=== PATIENT | male | born 1955 | race American Indian/Alaskan Native ===

== ENCOUNTER 2018-05-14 11:38 | Emergency (ER) | payer MEDICARE, MEDICAID ==
[2018-05-14 11:38] VITALS: BMI 31.3
[2018-05-14 12:02] VITALS: TEMP 98.4; O2SAT 96
--- NOTE | 2018-05-14 12:12 | ED PDOC ---
HPI: General Adult Time Seen by Provider: 05/14/18 12:06 Chief Complaint (Nursing): Abnormal Skin Integrity Chief Complaint (Provider): rash History Per: Patient History/Exam Limitations: no limitations Onset/Duration Of Symptoms: Days (x7) Current Symptoms Are (Timing): Still Present Additional Complaint(s): 62 y/o male with a PMHx of asthma, HIV, DM and HTN presents to the ED complaining of a rash to the bilateral upper extremities, onset one week ago. Patient reports rash developed after working outside in his backyard. Denies taking medications for symptom relief. PMD: Toñito Choudhary Past Medical History Reviewed: Historical Data, Nursing Documentation, Vital Signs Vital Signs: Last Vital Signs Temp 98.4 F 05/14/18 12:00 Pulse 96 H 05/14/18 12:00 Resp 20 05/14/18 12:00 BP 181/97 H 05/14/18 12:00 Pulse Ox 96 05/14/18 12:52 - Medical History PMH: Asthma, Depression, Diabetes, Hepatitis (C), HIV, HTN - Surgical History Surgical History: No Surg Hx - Family History Family History: States: Unknown Family Hx - Social History Current smoker - smoking cessation education provided: No Alcohol: None Drugs: Denies - Home Medications Home Medications: Ambulatory Orders Medication Instructions Recorded Albuterol Sulfate [Proair Hfa] 2 puff IH Q6H PRN 03/19/15 Allopurinol [Zyloprim] 300 mg PO DAILY 03/19/15 Darunavir [Prezista] 800 mg PO HS 03/19/15 Ergocalciferol (Vitamin D2) 50,000 unit PO DAILY 03/19/15 [Vitamin D2] Fenofibrate [Tricor] 48 mg PO DAILY 03/19/15 Losartan [Cozaar] 100 mg PO DAILY 03/19/15 Omeprazole [Prilosec] 20 mg PO DAILY 03/19/15 Ritonavir [Norvir] 100 mg PO HS 03/19/15 amLODIPine [Norvasc] 5 mg PO DAILY 03/19/15 QUEtiapine [SEROquel] 200 mg PO HS #0 tab 03/23/15 Raltegravir Potassium [Isentress] 400 mg PO BID #0 tab 03/23/15 Zolpidem [Ambien] 5 mg PO HS PRN #0 tab 03/23/15 Carvedilol [Coreg] 6.25 mg PO BID 10/06/16 Insulin Lispro Mix 75/25 [humalog 15 units SC ACBD 10/06/16 Mix 75/25 75 U/Ml-25 U/Ml 10 Ml] Terazosin HCl [Terazosin HCl] 1 mg PO DAILY 10/06/16 Hydrocortisone [Hydrocortisone 1 applic TOP TID #1 tube 05/14/18 2.5% Cream] - Allergies Allergies/Adverse Reactions: Allergies Allergy/AdvReac Type Severity Reaction Status Date / Time No Known Allergies Allergy Verified 03/19/15 12:16 Review of Systems ROS Statement: Except As Marked, All Systems Reviewed And Found Negative Constitutional: Negative for: Fever Skin: Positive for: Rash (to the bilateral upper extremities.) Physical Exam - Reviewed Nursing Documentation Reviewed: Yes Vital Signs Reviewed: Yes - Physical Exam Appears: Positive for: Well, Non-toxic, No Acute Distress Head Exam: Positive for: ATRAUMATIC Skin: Positive for: Rash (Pustular and maculopapular rash noted to bilateral upper extremities consistent with poison charlene dermatitis. No acute cellulitis noted.) Eye Exam: Positive for: Normal appearance Cardiovascular/Chest: Positive for: Regular Rate, Rhythm Respiratory: Positive for: Normal Breath Sounds Extremity: Positive for: Normal ROM. Negative for: Deformity Neurologic/Psych: Positive for: Alert, Oriented (x3). Negative for: Motor/ Sensory Deficits - ECG O2 Sat by Pulse Oximetry: 96 (RA) Pulse Ox Interpretation: Normal Medical Decision Making Medical Decision Making: Time: 1249 Impression: Poison Charlene Dermatitis Plan: -- Patient given rx hydrocortisone cream and advised to take [id number] Benadryl for pruritus. Patient instructed to follow up with pre k teacher if symptoms persist. Scribe Attestation: Documented by Arielle Parmar, acting as a scribe for Lynnette Eli PA-C. Provider Scribe Attestation: All medical record entries made by the Scribe were at my direction and personally dictated by me. I have reviewed the chart and agree that the record accurately reflects my personal performance of the history, physical exam, medical decision making, and the department course for this patient. I have also personally directed, reviewed, and agree with the discharge instructions and disposition. Disposition - Clinical Impression Clinical Impression: Poison charlene dermatitis - Patient ED Disposition Is Patient to be Admitted: No Counseled Patient/Family Regarding: Diagnosis, Need For Followup, Rx Given - Disposition Referrals: Toñito Choudhary MD [Staff Provider] - Disposition: Routine/Home Disposition Time: 13:00 Condition: STABLE Additional Instructions: Take 2 tablets of over the counter benadryl every 6 hrs for itch relief. Apply cream and directed. Follow up with pre k teacher for any persistent symptoms. Prescriptions: Hydrocortisone [Hydrocortisone 2.5% Cream] 1 applic TOP TID #1 tube Instructions: Poison Charlene Forms: [facility] ([facility])
[2018-05-14 13:14] VITALS: BP 165/78; PULSE 77; RESP 18
== END 2018-05-14 13:40 | disposition home or self-care (01) ==
LOC: H.ER 11:38
DX: L23.7 Allergic contact dermatitis due to plants, except food (principal)

== ENCOUNTER 2018-08-01 12:11 | Emergency (ER) | payer MEDICARE, MEDICAID ==
[2018-08-01 12:11] VITALS: BMI 31.3
[2018-08-01 12:20] VITALS: O2SAT 96
--- NOTE | 2018-08-01 13:37 | ED PDOC ---
HPI: General Adult Time Seen by Provider: 08/01/18 12:20 Chief Complaint (Nursing): Chest Pain Chief Complaint (Provider): Cough, cold and congestion History Per: Patient History/Exam Limitations: no limitations Onset/Duration Of Symptoms: Days (x 1) Current Symptoms Are (Timing): Still Present Additional Complaint(s): 63 year old male with a history of asthma, depression, diabetes, HTN, HIV and Hepatitis C presents to the ED after he was sent by his PMD, Dr. Choudhary for evaluation of chest pain. According to patient, he has a chest and head cold and a cough productive of yellow sputum. He did not take any medications prior to arrival. Denies fever, chills and leg swelling. PMD: Dr. Choudhary Past Medical History Reviewed: Historical Data, Nursing Documentation, Vital Signs Vital Signs: Last Vital Signs Temp 97.4 F L 08/01/18 12:19 Pulse 99 H 08/01/18 12:19 Resp 18 08/01/18 12:19 BP 161/110 H 08/01/18 12:19 Pulse Ox 96 08/01/18 12:19 - Medical History PMH: Asthma, COPD, Depression, Diabetes, Hepatitis (C), HIV, HTN, Chronic Kidney Disease Denies: Arthritis, CHF, Hypercholesterolemia, Hypothyroidism, Rheumatoid Arthritis - Surgical History Surgical History: Denies: Pacemaker - Family History Family History: States: Unknown Family Hx - Home Medications Home Medications: Ambulatory Orders Medication Instructions Recorded RX: Albuterol Sulfate [Proair Hfa] 2 puff IH Q6H PRN 03/19/15 RX: Allopurinol [Zyloprim] 300 mg PO DAILY 03/19/15 RX: Darunavir [Prezista] 800 mg PO HS 03/19/15 RX: Ergocalciferol (Vitamin D2) 50,000 unit PO DAILY 03/19/15 [Vitamin D2] RX: Fenofibrate [Tricor] 48 mg PO DAILY 03/19/15 RX: Losartan [Cozaar] 100 mg PO DAILY 03/19/15 RX: Omeprazole [Prilosec] 20 mg PO DAILY 03/19/15 RX: Ritonavir [Norvir] 100 mg PO HS 03/19/15 RX: amLODIPine [Norvasc] 5 mg PO DAILY 03/19/15 RX: QUEtiapine [SEROquel] 200 mg PO HS #0 tab 03/23/15 RX: Raltegravir Potassium 400 mg PO BID #0 tab 03/23/15 [Isentress] RX: Zolpidem [Ambien] 5 mg PO HS PRN #0 tab 03/23/15 Carvedilol [Coreg] 6.25 mg PO BID 10/06/16 Insulin Lispro Mix 75/25 [humalog 15 units SC ACBD 10/06/16 Mix 75/25 75 U/Ml-25 U/Ml 10 Ml] Terazosin HCl 1 mg PO DAILY 10/06/16 Hydrocortisone [Hydrocortisone 1 applic TOP TID #1 tube 05/14/18 2.5% Cream] RX: Albuterol HFA [Ventolin HFA 90 2 puff IH Q4H PRN #1 inh 08/01/18 mcg/actuation (8 g)] RX: Azithromycin [Zithromax] 250 mg PO DAILY #6 dose 08/01/18 RX: Prednisone 50 mg PO DAILY #5 tablet 08/01/18 - Allergies Allergies/Adverse Reactions: Allergies Allergy/AdvReac Type Severity Reaction Status Date / Time No Known Allergies Allergy Verified 08/01/18 12:15 Review of Systems ROS Statement: Except As Marked, All Systems Reviewed And Found Negative Constitutional: Negative for: Fever, Chills Respiratory: Positive for: Cough, Sputum Musculoskeletal: Negative for: Leg Pain (or swelling) Neurological: Positive for: Headache Physical Exam - Reviewed Nursing Documentation Reviewed: Yes Vital Signs Reviewed: Yes - Physical Exam Appears: Positive for: Non-toxic, No Acute Distress Head Exam: Positive for: ATRAUMATIC, NORMAL INSPECTION, NORMOCEPHALIC Skin: Positive for: Normal Color, Warm, Dry Eye Exam: Positive for: EOMI, Normal appearance, PERRL Neck: Positive for: Normal, Painless ROM, Supple Cardiovascular/Chest: Positive for: Regular Rate, Rhythm. Negative for: Murmur Respiratory: Positive for: Rhonchi (bilateral) Gastrointestinal/Abdominal: Positive for: Normal Exam, Soft. Negative for: Tenderness Extremity: Positive for: Normal ROM. Negative for: Tenderness, Deformity, Swelling Neurologic/Psych: Positive for: Alert, Oriented. Negative for: Motor/Sensory Deficits - Laboratory Results Result Diagrams: 08/01/18 14:00 08/01/18 14:00 - ECG O2 Sat by Pulse Oximetry: 96 (RA) Pulse Ox Interpretation: Normal Medical Decision Making Medical Decision Makin:27 Impression: cold, congestion, cough Initial Plan: --CMP --CBC --CXR --Troponin --Influenza AB 15:00 --Patient signed out to Dr. Hansen pending labs imaging and reeval. Scribe Attestation: Documented by Dalia Salinas acting as a scribe for Bobo Ramachandran MD Provider Scribe Attestation: All medical record entries made by the Scribe were at my direction and personally dictated by me. I have reviewed the chart and agree that the record accurately reflects my personal performance of the history, physical exam, medical decision making, and the department course for this patient. I have also personally directed, reviewed, and agree with the discharge instructions and disposition. Disposition - Clinical Impression Clinical Impression: Bronchitis - Patient ED Disposition Is Patient to be Admitted: Transfer of Care - Disposition Referrals: [facility] [Outside] - 08/05/18 Disposition: Transfer of Care Disposition Time: 15:00 Condition: IMPROVED Prescriptions: RX: Albuterol HFA [Ventolin HFA 90 mcg/actuation (8 g)] 2 puff IH Q4H PRN #1 inh PRN Reason: ASTHMA RX: Azithromycin [Zithromax] 250 mg PO DAILY #6 dose RX: Prednisone 50 mg PO DAILY #5 tablet Instructions: Acute Bronchitis, Adult (DC) Patient Signed Over To: Lynnette Hansen Handoff Comments: pending workup and dispo
[2018-08-01] MEDS ORDERED: Albuterol 0.083% Inhal Sol (2.5 mg/3 mL) UD INH ONE (14:15)
[2018-08-01] MEDS ORDERED: Albuterol 0.083% Inhal Sol (2.5 mg/3 mL) UD ONE (14:38)
[2018-08-01 15:06] LABS: BASO % 0.6 % (0.0-2.0); EOS # 0.1 K/uL (0.0-0.7); HEMOGLOBIN 13.5 g/dL (12.0-18.0); LYMPH # 1.4 K/uL (1.0-4.3); LYMPH % 40.3 % (20.0-40.0); MEAN CELL VOLUME 89.6 fl (80.0-94.0); MEAN CORPUSCULAR HEMOGLOBIN 30.5 pg (27.0-31.0); MEAN PLATELET VOLUME 9.9 fl (7.2-11.7); MONO # 0.5 K/uL (0.0-0.8); MONO % 15.4 % (0.0-10.0); NEUT # 1.4 K/uL (1.8-7.0); NEUT % 40.7 % (50.0-75.0); NRBC % 0.2 % (0.0-0.0); RBC 4.42 Mil/uL (4.40-5.90); RED CELL DISTRIBUTION WIDTH 15.5 % (11.5-14.5); WHITE BLOOD COUNT 3.5 K/uL (4.8-10.8)
--- NOTE | 2018-08-01 15:12 | ED PDOC ---
- Laboratory Results Result Diagrams: 08/01/18 14:00 08/01/18 14:00 - ECG O2 Sat by Pulse Oximetry: 96 (RA) Pulse Ox Interpretation: Normal Medical Decision Making Medical Decision Makin Patient signed out to me by Dr. Ramachandran pending ER workup, reassessment and final dispo. 1730 Labs and Chest x-ray reviewed, patient with no clinically significant findings. On reassessment, patient feels much better. Patient stable for discharge home. Scribe Attestation: Documented by Janice Banda, acting as a scribe for Lynnette Hansen MD Provider Scribe Attestation: All medical record entries made by the Scribe were at my direction and personally dictated by me. I have reviewed the chart and agree that the record accurately reflects my personal performance of the history, physical exam, medical decision making, and the department course for this patient. I have also personally directed, reviewed, and agree with the discharge instructions and disposition. Disposition Counseled Patient/Family Regarding: Studies Performed, Diagnosis, Need For Followup, Rx Given - Clinical Impression Clinical Impression: Bronchitis - POA Present On Arrival: None - Disposition Referrals: [facility] [Outside] - 08/05/18 Disposition: Routine/Home Disposition Time: 17:32 Condition: IMPROVED Prescriptions: RX: Albuterol HFA [Ventolin HFA 90 mcg/actuation (8 g)] 2 puff IH Q4H PRN #1 inh PRN Reason: ASTHMA RX: Azithromycin [Zithromax] 250 mg PO DAILY #6 dose RX: Prednisone 50 mg PO DAILY #5 tablet Instructions: Acute Bronchitis, Adult (DC)
[2018-08-01 15:24] LABS: ALB/GLOB RATIO 1.1 (1.0-2.1); ALBUMIN 3.8 g/dL (3.5-5.0); ALT/SGPT 41 U/L (21-72); AST/SGOT 31 U/L (17-59); BLOOD UREA NITROGEN 15 mg/dl (9-20); CALCIUM 9.4 mg/dL (8.4-10.2); GFR NON-AFRICAN AMERICAN > 60
--- NOTE | 2018-08-01 16:10 | RAD ---
Date of service: 08/01/2018 HISTORY: cough COMPARISON: No prior. TECHNIQUE: Chest PA and lateral FINDINGS: LUNGS: No acute airspace disease appreciated bilaterally. Some hyperlucency in the bilateral apices as well as hemidiaphragmatic flattening may reflect COPD. Clinically correlate. PLEURA: No significant pleural effusion identified. No pneumothorax apparent. CARDIOVASCULAR: No aortic atherosclerotic calcification present OSSEOUS STRUCTURES: No significant abnormalities. VISUALIZED UPPER ABDOMEN: Normal. OTHER FINDINGS: None. IMPRESSION: No acute airspace disease, pleural effusion or pneumothorax bilaterally. No pulmonary vascular congestion. Questionable COPD. Clinically correlate further.
[2018-08-01 17:25] VITALS: BP 148/92; PULSE 89; RESP 20; TEMP 98.2
== END 2018-08-01 17:45 | disposition home or self-care (01) ==
LOC: H.ER 12:11
DX: J40 Bronchitis, not specified as acute or chronic (principal); J44.9 Chronic obstructive pulmonary disease, unspecified; N18.9 Chronic kidney disease, unspecified; E11.22 Type 2 diabetes mellitus with diabetic chronic kidney disease; Z79.4 Long term (current) use of insulin; Z79.899 Other long term (current) drug therapy; B19.20 Unspecified viral hepatitis C without hepatic coma; Z86.59 Personal history of other mental and behavioral disorders; I12.9 Hypertensive chronic kidney disease with stage 1 through stage 4 chronic kidney disease, or unspecified chronic kidney disease